=== PATIENT | male | born 1960 | race Caucasian/White ===

== ENCOUNTER 2020-03-13 18:35 | Observation (INO) ==
--- NOTE | 2020-03-13 20:52 | DR.SOBA ---
HPI Time Seen Time Seen by Provider: 03/13/20 19:16 Primary Care Physician Primary Care Physician: ZE HPI Comment HPI Comment: Persistent, mostly dry cough for the past two and a half weeks despite tx with zpak and Medrol dose pack last week for presumed covid since his daughter tested positive and lives with him; developed low grade fever to 100.6 a few days ago with l[place], st, body aches and pains, nausea and mild abd pain; stopped cigarettes many years ago and denies lung disease. Complaints Chief Complaint:: EXPOSURE TO COVID TWO WEEKS AGO, WEEK LATER STARTED HAVING SYMPTOMS. WENT TO DR WAS GIVEN MEDS BUT NO IMPROVEMENT. Self Treatment fo Chief Complaint: LOW GRADE FEVER Source History Provided: Patient Mode of Arrival Mode of Arrival: Ambulatory Timing Onset of Chief Complaint: 03/09/20 PMH PMH Past Medical History: Yes Past Medical History: Hypertension Past Surgical History: Yes Surgical History: Other Past Surgical History Comment: HERNIA SURGERY Family History History of Family Medical Conditions: Yes Family Medical History: Cancer and Hypertension Social History Alcohol Use: None Do you use any recreational Drugs:: No Lives With: Spouse and Family Lives Where: Home Infectious screening In the last 2 months have you had wt loss of >10#?: NO Have you had fever, night sweats or hemotysis?: No Have you traveled outside the country in the last 6 months?: No Isolation: Standard ROS Review of Systems Eyes: No Symptoms Reported ENTM: No Symptoms Reported Genitourinary: No Symptoms Reported Musculoskeletal: No Symptoms Reported Integumentary: No Symptoms Reported Hematologic/Lymphatic: No Symptoms Reported Endocrine: No Symptoms Reported PE Vital Signs Vitals: Temperature 98.2 F Pulse Rate 96 Respiratory Rate 20 Blood Pressure 152/88 O2 Sat by Pulse Oximetry 98 General Limitations: No Limitations General Appearance: Alert, In No Apparent Distress and Anxious Head Head Exam: Normal Inspection Eyes Eye exam: Normal Appearance ENT ENT Exam: Normal Exam Neck Neck Exam: Normal Inspection Chest Chest Inspection: Normal Inspection Respiratory Respiratory Exam: Bilateral: Decreased Breath Sounds Cardiovascular Cardiovascular Exam: Regular Rate and Normal Rhythm Abdominal Exam Abdominal Exam: Normal Inspection, Normal Bowel Sounds and Soft Extremities Extremities Exam: Normal Inspection Back Back Exam: Normal Inspection Neurologic Neurological Exam: Alert and Oriented X3 Skin Skin Exam: Warm, Dry, Intact and Normal Color COURSE Treatment Treatment: Dr Hendrix accepts pt Reevaluation 1st: Unchanged (resting comfortably) ROR Labs Reviewed Result Diagrams: 03/13/20 21:08 03/13/20 21:08 Laboratory: WBC 4.5 X10^3/uL (3.6-10.0) 03/13/20 21:08 RBC 5.27 X10^6/uL (4.7-6.0) 03/13/20 21:08 Hgb 15.9 g/dL (13.5-18.0) 03/13/20 21:08 Hct 46.0 % (42.0-54.0) 03/13/20 21:08 MCV 87.3 fL (80.0-100.0) 03/13/20 21:08 MCH 30.1 pg (27.0-34.0) 03/13/20 21:08 MCHC 34.5 g/dL (33.0-35.0) 03/13/20 21:08 RDW 14.2 % (11.6-16.5) 03/13/20 21:08 Plt Count 136 X10^3/uL (150.0-450.0) L 03/13/20 21:08 MPV 8.1 fL (7.4-11.0) 03/13/20 21:08 Neut % (Auto) 66.2 % (42.0-75.0) 03/13/20 21:08 Lymph % (Auto) 21.6 % (21.0-51.0) 03/13/20 21:08 [place] % (Auto) 10.1 % (0.0-13.0) 03/13/20 21:08 Eos % (Auto) 0.1 % (0.9-2.9) L 03/13/20 21:08 Baso % (Auto) 2.0 % (0.2-1.0) H 03/13/20 21:08 Neut # (Auto) 3.0 x10^3/uL (2.2-4.8) 03/13/20 21:08 Lymph # (Auto) 1.0 X10^3/uL (1.3-2.9) L 03/13/20 21:08 [place] # (Auto) 0.5 x10^3/uL (0.3-0.8) 03/13/20 21:08 Eos # (Auto) 0.0 x10^3/uL (0.0-0.2) 03/13/20 21:08 Baso # (Auto) 0.1 X10^3/uL (0.0-0.1) 03/13/20 21:08 Absolute Nucleated RBC 0.1 /100WBC 03/13/20 21:08 Sample Site Lrad 03/13/20 22:22 ABG pH 7.450 (7.35-7.45) 03/13/20 22:22 ABG pCO2 36.0 mmHg (35.0-45.0) 03/13/20 22:22 ABG pO2 64.0 mmHg (80.0-100.0) L 03/13/20 22:22 ABG HCO3 25.0 mmol/L (22-26) 03/13/20 22:22 ABG O2 Saturation 93.0 % (90-100) 03/13/20 22:22 ABG Base Excess 1.2 mmol/L (-2.0-2.0) 03/13/20 22:22 Ariel Test Pos 03/13/20 22:22 A-a Gradient 41.0 mmHg 03/13/20 22:22 FiO2 21.0 03/13/20 22:22 Blood Gas Comments Pt on roomair,delmy we 03/13/20 22:22 Sodium 138 mmol/L (136-145) 03/13/20 21:08 Corrected Sodium 139 mmol/L (136-145) 03/13/20 21:08 Potassium 4.6 mmol/L (3.5-5.1) 03/13/20 21:08 Chloride 102 mmol/L (98-107) 03/13/20 21:08 Carbon Dioxide 26.7 mmol/L (21-32) 03/13/20 21:08 BUN 18 mg/dL (7-18) 03/13/20 21:08 Creatinine 1.25 mg/dL (0.70-1.30) 03/13/20 21:08 Est GFR (MDRD) Af Amer > 60 (>60) 03/13/20 21:08 Est GFR (MDRD) Non-Af > 60 (>60) 03/13/20 21:08 Glucose 122 mg/dL (65-99) H 03/13/20 21:08 Calcium 9.8 mg/dL (8.5-10.1) 03/13/20 21:08 Corrected Calcium TNP 03/13/20 21:08 Total Bilirubin 0.50 mg/dL (0.2-1.0) 03/13/20 21:08 AST 33 Units/L (15-37) 03/13/20 21:08 ALT 45 Units/L (12-78) 03/13/20 21:08 Alkaline Phosphatase 57 Units/L (46-116) 03/13/20 21:08 C-Reactive Protein 15.80 mg/L (0-3.0) H 03/13/20 21:08 Total Protein 7.3 g/dL (6.4-8.2) 03/13/20 21:08 Albumin 3.6 g/dL (3.4-5.0) 03/13/20 21:08 Globulin 3.7 g/dL (2.5-4.5) 03/13/20 21:08 Albumin/Globulin Ratio 1.0 Ratio (1.1-2.1) L 03/13/20 21:08 SARS CoV-2 RNA Rapid ZARA Positive (NEGATIVE) A 03/13/20 21:09 XRAY XRAY Interpreted by: Radiologist X-ray Results: pcxr: 1. Bilateral interstitial prominence. Findings may represent atypical infection, including viral etiologies. Opioid Opioid Risk Tool Total: 0 Total Score Risk Category: Low Risk Copyright: Santos CANTU predicting aberrant behaviors Diagnosis Discharge Problem: Pneumonia due to 2019 novel coronavirus, Hypoxia, Nausea, Myalgia Instructions Forms: Patient Portal Social Distancing
[2020-03-13] MEDS ORDERED: ZOFRAN INJ 4 MG VIAL IM ONE (21:06)
[2020-03-13] MEDS ORDERED: ZOFRAN INJ 4 MG VIAL ONE (21:07)
--- NOTE | 2020-03-13 21:14 | RAD ---
CHEST, 1 VIEWHISTORY: EXPOSURE TO COVID TWO WEEKS AGO, WEEK LATER STARTED HAVING SYMPTOMS. WENT TO DR WAS GIVEN MEDS BUT NO IMPROVEMENT.Study: Single view of the chest.Comparison:NoneFindings:The cardiomediastinal silhouette is normal. Bilateral interstitial prominence. No focal consolidations, pleural effusions or pneumothorax. Osseous structures demonstrate no acute abnormality.IMPRESSION:1. Bilateral interstitial prominence. Findings may represent atypical infection, including viral etiologies.Electronically signed by: RADHA RODRÍGUEZ (Mar 13, 2020 21:12:44)
[2020-03-13 21:20] LABS: BASOPHILS # (AUTO) 0.1 X10^3/uL (0.0-0.1); EOSINOPHILS % (AUTO) 0.1 % (0.9-2.9); HEMOGLOBIN 15.9 g/dL (13.5-18.0); LYMPHOCYTES % (AUTO) 21.6 % (21.0-51.0); MEAN CORPUSCULAR HEMOGLOBIN 30.1 pg (27.0-34.0); MEAN CORPUSCULAR HGB CONC 34.5 g/dL (33.0-35.0); MEAN CORPUSCULAR VOLUME 87.3 fL (80.0-100.0); MEAN PLATELET VOLUME 8.1 fL (7.4-11.0); MONOCYTES # (AUTO) 0.5 x10^3/uL (0.3-0.8); MONOCYTES % (AUTO) 10.1 % (0.0-13.0); NEUTROPHILS % (AUTO) 66.2 % (42.0-75.0); PLATELET COUNT 136 X10^3/uL (150.0-450.0); RED BLOOD COUNT 5.27 X10^6/uL (4.7-6.0); RED CELL DISTRIBUTION WIDTH 14.2 % (11.6-16.5); WHITE BLOOD COUNT 4.5 X10^3/uL (3.6-10.0)
[2020-03-13 21:34] LABS: ALANINE AMINOTRANSFERASE 45 Units/L (12-78); ALBUMIN 3.6 g/dL (3.4-5.0); ALKALINE PHOSPHATASE 57 Units/L (46-116); ASPARTATE AMINO TRANSFERASE 33 Units/L (15-37); BLOOD UREA NITROGEN 18 mg/dL (7-18); CALCIUM 9.8 mg/dL (8.5-10.1); CARBON DIOXIDE 26.7 mmol/L (21-32); CHLORIDE 102 mmol/L (98-107); COR NA(FOR HYPERGLY) 139 mmol/L (136-145); CREATININE 1.25 mg/dL (0.70-1.30); SODIUM 138 mmol/L (136-145); TOTAL PROTEIN 7.3 g/dL (6.4-8.2); eGFR NON BLACK RACES > 60 (>60)
[2020-03-13] MEDS ORDERED: ROCEPHIN VIAL 1 GRAM 1 G in NS 100 ML IV + SPIKE MINIBAG* 100 ML IV ONE (21:36)
[2020-03-13] MEDS ORDERED: VIBRAMYCIN 100 MG in D5W 250 ML IV 250 ML IV STA (21:37)
[2020-03-13] MEDS ORDERED: ROCEPHIN VIAL 1 GRAM ONE (21:51)
[2020-03-13] MEDS ORDERED: NS 100 ML IV + SPIKE MINIBAG* 100 ML IV ONE (21:51)
[2020-03-13 22:24] LABS: ABG BASE EXCESS 1.2 mmol/L (-2.0-2.0)
[2020-03-13 22:25] LABS: ABG ALLEN TEST POS
[2020-03-13] MEDS ORDERED: ROCEPHIN 1 GRAM IV PREMIX 1 G/50 ML IV.SOLN. IV SCH (23:35)
[2020-03-14] MEDS: NS 1000 ML 1,000 ML IV SCH ×5 (02:00→23:54)
[2020-03-14 03:23] VITALS: BMI 36.7
[2020-03-14] MEDS ORDERED: DUONEB 0.5 MG/3 MG (3 mL) NEB ONE (04:54)
[2020-03-14] MEDS: DUONEB 0.5 MG/3 MG (3 mL) NEB SCH ×3 (06:00→21:05)
[2020-03-14 06:58] LABS: BASOPHILS % (AUTO) 0.1 % (0.2-1.0); EOSINOPHILS % (AUTO) 0.2 % (0.9-2.9); HEMATOCRIT 43.9 % (42.0-54.0); HEMOGLOBIN 14.8 g/dL (13.5-18.0); LYMPHOCYTES % (AUTO) 37.6 % (21.0-51.0); MEAN CORPUSCULAR HEMOGLOBIN 29.8 pg (27.0-34.0); MEAN CORPUSCULAR HGB CONC 33.8 g/dL (33.0-35.0); MEAN CORPUSCULAR VOLUME 88.3 fL (80.0-100.0); MONOCYTES # (AUTO) 0.5 x10^3/uL (0.3-0.8); MONOCYTES % (AUTO) 8.8 % (0.0-13.0); NEUTROPHILS # (AUTO) 2.8 x10^3/uL (2.2-4.8); NEUTROPHILS % (AUTO) 53.3 % (42.0-75.0); PLATELET COUNT 148 X10^3/uL (150.0-450.0); RED BLOOD COUNT 4.97 X10^6/uL (4.7-6.0); RED CELL DISTRIBUTION WIDTH 14.3 % (11.6-16.5); WHITE BLOOD COUNT 5.2 X10^3/uL (3.6-10.0)
[2020-03-14 07:08] LABS: ALANINE AMINOTRANSFERASE 45 Units/L (12-78); ALBUMIN 3.3 g/dL (3.4-5.0); ALKALINE PHOSPHATASE 51 Units/L (46-116); ASPARTATE AMINO TRANSFERASE 37 Units/L (15-37); BLOOD UREA NITROGEN 16 mg/dL (7-18); CALCIUM 8.3 mg/dL (8.5-10.1); CHLORIDE 103 mmol/L (98-107); COR CA(FOR HYPOALB) 8.9 mg/dL (8.5-10.1); COR NA(FOR HYPERGLY) 139 mmol/L (136-145); CREATININE 1.14 mg/dL (0.70-1.30); SODIUM 138 mmol/L (136-145); TOTAL PROTEIN 6.8 g/dL (6.4-8.2); eGFR NON BLACK RACES > 60 (>60)
[2020-03-14] MEDS: PULMICORT NEB TX 0.5 MG NEB SCH ×2 (10:00→21:05)
[2020-03-14] MEDS: VIBRAMYCIN 100 MG in D5W 250 ML IV 250 ML IV SCH ×2 (10:34→21:33)
[2020-03-14] MEDS: COZAAR PO SCH (10:34)
[2020-03-14] MEDS: ZOCOR TAB 20 MG PO SCH (10:34)
[2020-03-14] MEDS ORDERED: TUSSIONEX PENNKINETIC SUSP PO PRN (13:25)
--- NOTE | 2020-03-14 13:33 | DR.H&P ---
H&P - History & Physical for Day of: H&P Date: 03/13/20 - Chief Complaint Chief Complaint: FEVER, SOB, CCC COVID 19+ - History of Present Illness History of Present Illness: PT IS 59 WM ER ADMISSION WITH CO FAILED OUTPT THERAPY FOR COVID 19. PT REPORTS HE WAS POSITIVE ~10 DAYS AGO. PT COMPLETED STEROIDS AND ZITHROMAX BY MOUTH, ONSET OF FEVER X2 DAYS. PT HAS PMH OF HTN. PT HAD PNEUMONIA ON CXR. - Past Medical History Past Medical History: Hypertension - Past Surgical History Surgical History: Other - Family History Family Medical History: Cancer, Hypertension - Social History Alcohol Use: None Drug Use: None - Medications Home Medications: No Known Drug Allergies Allergy (Verified 03/13/20 19:04) CONTINUE taking the following medications losartan 50 mg PO DAILY 03/13/20 [History] simvastatin 20 mg PO DAILY 03/13/20 [History] - Review of Systems Constitutional: Fever, Chills, Sweats, Malaise Eyes: No Symptoms Reported ENT: No Symptoms Reported Respiratory: Cough, SOB with Excertion, Wheezing Cardiovascular: No Symptoms Reported Gastrointestinal: Nausea Genitourinary: No Symptoms Reported Musculoskeletal: No Symptoms Reported Skin: No Symptoms Reported Neurological: No Symptoms Reported - Physical Exam Vital Signs: Temperature 98.9 F Pulse Rate [Left Brachial] 89 Pulse Rate 81 Respiratory Rate 20 Blood Pressure [Left Arm] 135/77 Blood Pressure 152/88 O2 Sat by Pulse Oximetry 95 Oriented: Normal Eyes: Normal Ear: Normal Nose: Normal Throat: Normal Respiratory: RLL Diminished, LLL Diminished Cardiovascular: Normal : Normal Auscultation: Bowel Sounds: Normal Palpation: Normal Tenderness: Normal Skin: Decreased [place]urg[place] Musculoskeletal: Normal Psychiatric: Anxiety Affect: Anxious Speech Pattern: Clear, Appropriate - Assessment/Plan (1) Pneumonia due to 2019 novel coronavirus Status: Acute Plan: ADMIT, IV ATBX THERAPY. BP CONTROL, SUPPLEMENTAL O2, REMDESIVIR. CXR ON ADMISSION, LOVENOX PROPHALAXIS, VERIFY HOME MEDICATIONS. ABG ON ADMISSION, RESP THERAPY, ISOLATION PRECAUTIONS (2) Hypoxia Status: Acute (3) Hypertension Status: Acute - Allergies Allergies/Adverse Reactions: Allergies Allergy/AdvReac Type Severity Reaction Status Date / Time No Known Drug Allergies Allergy Verified 03/13/20 19:04
--- NOTE | 2020-03-14 13:38 | PCM.PROG ---
Progress Note - Progress Note for Day of Date of Exam: 03/14/20 - Subjective Subjective: PT IS 59 WM ER ADMISSION WITH COVID 19+PNEUMONIA WITH HYPOXIA, FAIILED OUTPT THERAPY. PT CURRENTLY ONIV DOXY, ADDED LEVAQUIN. PT ON 2L SUPPLEMENTAL O2 WITH STABLE O2 SAT AT 95 THIS AM. PT CO FATIGUE AND FEVER. ENCOURAGED PULMONARY TOILETING AND FREQUENT AMBULATION. - Past Medical Family Social History Past Med/Fam/Surg Hx: No changes since H&P Allergies: Allergies No Known Drug Allergies Allergy (Verified 03/13/20 19:04) - Review of Systems ROS: No change since H&P - Vital Signs and I&O's Vital Signs: Temperature 98.9 F Pulse Rate [Left Brachial] 89 Pulse Rate 81 Respiratory Rate 20 Blood Pressure [Left Arm] 135/77 Blood Pressure 152/88 O2 Sat by Pulse Oximetry 95 Intake and Output: Intake & Output 03/12/20 03/13/20 03/14/20 03/15/20 11:59 11:59 11:59 11:59 Intake Total 1145 / 1145 Balance 1145 / 1145 - Physical Exam Oriented: Normal Eyes: Normal Ear: Normal Nose: Normal Throat: Normal Respiratory: Diminished Cardiovascular: Normal : Normal Auscultation: Bowel Sounds: Normal Tenderness: Normal Skin: Decreased Turgur Musculoskeletal: Normal Psychiatric: Anxiety Affect: Anxious Speech Pattern: Clear, Appropriate - Laboratory and Diagnostics Result Diagrams: 03/14/20 05:51 03/14/20 05:51 Labs: Laboratory WBC 5.2 X10^3/uL (3.6-10.0) 03/14/20 05:51 RBC 4.97 X10^6/uL (4.7-6.0) 03/14/20 05:51 Hgb 14.8 g/dL (13.5-18.0) 03/14/20 05:51 Hct 43.9 % (42.0-54.0) 03/14/20 05:51 MCV 88.3 fL (80.0-100.0) 03/14/20 05:51 MCH 29.8 pg (27.0-34.0) 03/14/20 05:51 MCHC 33.8 g/dL (33.0-35.0) 03/14/20 05:51 RDW 14.3 % (11.6-16.5) 03/14/20 05:51 Plt Count 148 X10^3/uL (150.0-450.0) L 03/14/20 05:51 MPV 9.0 fL (7.4-11.0) 03/14/20 05:51 Neut % (Auto) 53.3 % (42.0-75.0) 03/14/20 05:51 Lymph % (Auto) 37.6 % (21.0-51.0) 03/14/20 05:51 [place] % (Auto) 8.8 % (0.0-13.0) 03/14/20 05:51 Eos % (Auto) 0.2 % (0.9-2.9) L 03/14/20 05:51 Baso % (Auto) 0.1 % (0.2-1.0) L 03/14/20 05:51 Neut # (Auto) 2.8 x10^3/uL (2.2-4.8) 03/14/20 05:51 Lymph # (Auto) 2.0 X10^3/uL (1.3-2.9) 03/14/20 05:51 [place] # (Auto) 0.5 x10^3/uL (0.3-0.8) 03/14/20 05:51 Eos # (Auto) 0.0 x10^3/uL (0.0-0.2) 03/14/20 05:51 Baso # (Auto) 0.0 X10^3/uL (0.0-0.1) 03/14/20 05:51 Absolute Nucleated RBC 0.0 /100WBC 03/14/20 05:51 Sample Site Lrad 03/13/20 22:22 ABG pH 7.450 (7.35-7.45) 03/13/20 22:22 ABG pCO2 36.0 mmHg (35.0-45.0) 03/13/20 22:22 ABG pO2 64.0 mmHg (80.0-100.0) L 03/13/20 22:22 ABG HCO3 25.0 mmol/L (22-26) 03/13/20 22:22 ABG O2 Saturation 93.0 % (90-100) 03/13/20 22:22 ABG Base Excess 1.2 mmol/L (-2.0-2.0) 03/13/20 22:22 Ariel Test Pos 03/13/20 22:22 A-a Gradient 41.0 mmHg 03/13/20 22:22 FiO2 21.0 03/13/20 22:22 Blood Gas Comments Pt on roomair,delmy we 03/13/20 22:22 Sodium 138 mmol/L (136-145) 03/14/20 05:51 Corrected Sodium 139 mmol/L (136-145) 03/14/20 05:51 Potassium 3.9 mmol/L (3.5-5.1) 03/14/20 05:51 Chloride 103 mmol/L (98-107) 03/14/20 05:51 Carbon Dioxide 23.0 mmol/L (21-32) 03/14/20 05:51 BUN 16 mg/dL (7-18) 03/14/20 05:51 Creatinine 1.14 mg/dL (0.70-1.30) 03/14/20 05:51 Est GFR (MDRD) Af Amer > 60 (>60) 03/14/20 05:51 Est GFR (MDRD) Non-Af > 60 (>60) 03/14/20 05:51 Glucose 121 mg/dL (65-99) H 03/14/20 05:51 Calcium 8.3 mg/dL (8.5-10.1) L 03/14/20 05:51 Corrected Calcium 8.9 mg/dL (8.5-10.1) 03/14/20 05:51 Ferritin 566 ng/mL (26-388) H 03/13/20 21:08 Total Bilirubin 0.40 mg/dL (0.2-1.0) 03/14/20 05:51 AST 37 Units/L (15-37) 03/14/20 05:51 ALT 45 Units/L (12-78) 03/14/20 05:51 Alkaline Phosphatase 51 Units/L (46-116) 03/14/20 05:51 C-Reactive Protein 15.80 mg/L (0-3.0) H 03/13/20 21:08 Total Protein 6.8 g/dL (6.4-8.2) 03/14/20 05:51 Albumin 3.3 g/dL (3.4-5.0) L 03/14/20 05:51 Globulin 3.5 g/dL (2.5-4.5) 03/14/20 05:51 Albumin/Globulin Ratio 0.9 Ratio (1.1-2.1) L 03/14/20 05:51 SARS CoV-2 RNA Rapid ZARA Positive (NEGATIVE) A 03/13/20 21:09 - Plan (1) Pneumonia due to 2019 novel coronavirus Status: Acute Plan: IV ATBX THERAPY. BP CONTROL, SUPPLEMENTAL O2, REMDESIVIR. CXR AM, LOVENOX PROPHALAXIS, VERIFY HOME MEDICATIONS. ABG AM, RESP THERAPY, ISOLATION PRECAUTIONS, SOLU MEDROL IV AND ADDED LEVAQUIN AND ROBITUSSIN. (2) Hypoxia Status: Acute (3) Hypertension Status: Acute
[2020-03-14] MEDS ORDERED: REMDESIVIR 200 MG in NS 250 ML IV 250 ML IV SCH (14:00)
[2020-03-14] MEDS: LEVAQUIN PREMIX IV 500 MG 500 MG/100 ML BAG IV SCH (14:46)
[2020-03-14] MEDS: LOVENOX INJ 40 MG SYR SC SCH (14:47)
[2020-03-14] MEDS: ROBITUSSIN DM PO SCH ×3 (14:48→21:27)
[2020-03-14] MEDS: SOLU-Medrol 125 MG VIAL IVP SCH ×2 (14:49→21:28)
[2020-03-14] MEDS ORDERED: TYLENOL 325 MG TAB PO PRN (14:53)
[2020-03-15 05:33] LABS: ABG ALLEN TEST POS; ABG BASE EXCESS -1.3 mmol/L (-2.0-2.0); ABG HCO3 22.7 mmol/L (22-26)
[2020-03-15] MEDS: DUONEB 0.5 MG/3 MG (3 mL) NEB SCH ×3 (05:35→21:30)
[2020-03-15] MEDS: SOLU-Medrol 125 MG VIAL IVP SCH ×3 (06:05→21:00)
--- NOTE | 2020-03-15 06:11 | RAD ---
HISTORYPneumonia hypoxiaSTUDYAP [id number] normal heart size with dilated aorta and no evidence for c onsolidation or pleural fluid. Persistent interstitial prominence especially in the right perihilar d istribution. No adenopathy seen.IMPRESSIONNo significant change. Persistent right perihilar process c onsistent with pneumonia.Electronically signed by: ONEYDA LOPEZ (Mar 15, 2020 06:09:43)
[2020-03-15 06:59] LABS: ALANINE AMINOTRANSFERASE 50 Units/L (12-78); ALBUMIN 3.2 g/dL (3.4-5.0); ALKALINE PHOSPHATASE 50 Units/L (46-116); ASPARTATE AMINO TRANSFERASE 31 Units/L (15-37); BLOOD UREA NITROGEN 14 mg/dL (7-18); CALCIUM 8.9 mg/dL (8.5-10.1); CARBON DIOXIDE 19.2 mmol/L (21-32); CHLORIDE 105 mmol/L (98-107); COR CA(FOR HYPOALB) 9.5 mg/dL (8.5-10.1); COR NA(FOR HYPERGLY) 140 mmol/L (136-145); SODIUM 139 mmol/L (136-145); TOTAL PROTEIN 6.9 g/dL (6.4-8.2); eGFR NON BLACK RACES > 60 (>60)
[2020-03-15 07:17] LABS: BASOPHILS % (AUTO) 0.6 % (0.2-1.0); HEMATOCRIT 43.5 % (42.0-54.0); HEMOGLOBIN 14.6 g/dL (13.5-18.0); LYMPHOCYTES # (AUTO) 0.6 X10^3/uL (1.3-2.9); LYMPHOCYTES % (AUTO) 25.8 % (21.0-51.0); MEAN CORPUSCULAR HEMOGLOBIN 29.6 pg (27.0-34.0); MEAN CORPUSCULAR HGB CONC 33.5 g/dL (33.0-35.0); MEAN CORPUSCULAR VOLUME 88.4 fL (80.0-100.0); MEAN PLATELET VOLUME 8.8 fL (7.4-11.0); MONOCYTES # (AUTO) 0.1 x10^3/uL (0.3-0.8); MONOCYTES % (AUTO) 4.5 % (0.0-13.0); NEUTROPHILS # (AUTO) 1.7 x10^3/uL (2.2-4.8); NEUTROPHILS % (AUTO) 69.1 % (42.0-75.0); PLATELET COUNT 142 X10^3/uL (150.0-450.0); RED BLOOD COUNT 4.92 X10^6/uL (4.7-6.0); RED CELL DISTRIBUTION WIDTH 14.6 % (11.6-16.5); WHITE BLOOD COUNT 2.5 X10^3/uL (3.6-10.0)
[2020-03-15] MEDS: NS 1000 ML 1,000 ML IV SCH ×3 (09:10→23:00)
[2020-03-15] MEDS: LEVAQUIN PREMIX IV 500 MG 500 MG/100 ML BAG IV SCH (09:10)
[2020-03-15] MEDS: REMDESIVIR 100 MG in NS 250 ML IV 250 ML IV SCH (09:10)
[2020-03-15] MEDS: COZAAR PO SCH (09:10)
[2020-03-15] MEDS: ROBITUSSIN DM PO SCH ×4 (09:12→21:00)
[2020-03-15] MEDS: LOVENOX INJ 40 MG SYR SC SCH (09:13)
[2020-03-15] MEDS: VIBRAMYCIN 100 MG in D5W 250 ML IV 250 ML IV SCH ×2 (09:13→21:00)
[2020-03-15] MEDS: ZOCOR TAB 20 MG PO SCH (09:15)
[2020-03-15] MEDS: PULMICORT NEB TX 0.5 MG NEB SCH ×2 (09:20→21:30)
[2020-03-16] MEDS: SOLU-Medrol 125 MG VIAL IVP SCH ×3 (05:15→21:51)
[2020-03-16] MEDS: DUONEB 0.5 MG/3 MG (3 mL) NEB SCH ×3 (05:45→21:00)
[2020-03-16 06:39] LABS: BASOPHILS % (AUTO) 0.1 % (0.2-1.0); HEMATOCRIT 40.4 % (42.0-54.0); HEMOGLOBIN 13.7 g/dL (13.5-18.0); LYMPHOCYTES # (AUTO) 0.9 X10^3/uL (1.3-2.9); LYMPHOCYTES % (AUTO) 8.8 % (21.0-51.0); MEAN CORPUSCULAR HEMOGLOBIN 29.9 pg (27.0-34.0); MEAN CORPUSCULAR VOLUME 87.8 fL (80.0-100.0); MEAN PLATELET VOLUME 8.7 fL (7.4-11.0); MONOCYTES # (AUTO) 0.3 x10^3/uL (0.3-0.8); MONOCYTES % (AUTO) 3.3 % (0.0-13.0); NEUTROPHILS # (AUTO) 8.7 x10^3/uL (2.2-4.8); NEUTROPHILS % (AUTO) 87.8 % (42.0-75.0); PLATELET COUNT 157 X10^3/uL (150.0-450.0); RED CELL DISTRIBUTION WIDTH 14.5 % (11.6-16.5); WHITE BLOOD COUNT 9.9 X10^3/uL (3.6-10.0)
[2020-03-16 06:56] LABS: ALANINE AMINOTRANSFERASE 42 Units/L (12-78); ALKALINE PHOSPHATASE 42 Units/L (46-116); ASPARTATE AMINO TRANSFERASE 22 Units/L (15-37); BLOOD UREA NITROGEN 18 mg/dL (7-18); CALCIUM 8.7 mg/dL (8.5-10.1); CARBON DIOXIDE 21.6 mmol/L (21-32); CHLORIDE 107 mmol/L (98-107); COR CA(FOR HYPOALB) 9.5 mg/dL (8.5-10.1); COR NA(FOR HYPERGLY) 140 mmol/L (136-145); CREATININE 1.04 mg/dL (0.70-1.30); SODIUM 139 mmol/L (136-145); TOTAL PROTEIN 6.3 g/dL (6.4-8.2); eGFR NON BLACK RACES > 60 (>60)
[2020-03-16] MEDS: NS 1000 ML 1,000 ML IV SCH ×3 (08:43→23:30)
[2020-03-16] MEDS: COZAAR PO SCH (08:44)
[2020-03-16] MEDS: LEVAQUIN PREMIX IV 500 MG 500 MG/100 ML BAG IV SCH (08:44)
[2020-03-16] MEDS: REMDESIVIR 100 MG in NS 250 ML IV 250 ML IV SCH (08:45)
[2020-03-16] MEDS: ROBITUSSIN DM PO SCH ×4 (08:47→20:18)
[2020-03-16] MEDS: VIBRAMYCIN 100 MG in D5W 250 ML IV 250 ML IV SCH ×2 (08:48→20:19)
[2020-03-16] MEDS: ZOCOR TAB 20 MG PO SCH (08:48)
[2020-03-16] MEDS: PULMICORT NEB TX 0.5 MG NEB SCH ×2 (09:25→21:00)
[2020-03-16] MEDS: LOVENOX INJ 40 MG SYR SC SCH (10:19)
[2020-03-16] MEDS ORDERED: LASIX IVP ONE (10:43)
[2020-03-16] MEDS ORDERED: K-DUR TAB 20 MEQ PO SCH (11:00)
--- NOTE | 2020-03-17 04:42 | RAD ---
HISTORYCOVID, PNEUMONIASTUDYCHEST, 1 [id number] trachea is midline. The cardiac silhouette is upper limits of normal. Suspect patchy bilateral hazy airspace opacities of the middle and lower lung zone. No pleural effusion or pneumothorax.. The bony thorax is stable.IMPRESSIONSuspect patchy bilateral hazy airspace opacities, concerning for multifocal pneumonia.Electronically signed by: Felecia Blas (Mar 17, 2020 04:41:16)
[2020-03-17 05:43] LABS: ABG BASE EXCESS 1.1 mmol/L (-2.0-2.0); ABG HCO3 25.1 mmol/L (22-26)
[2020-03-17 05:44] LABS: ABG ALLEN TEST POS
[2020-03-17] MEDS: SOLU-Medrol 125 MG VIAL IVP SCH ×2 (05:55→14:30)
[2020-03-17] MEDS: DUONEB 0.5 MG/3 MG (3 mL) NEB SCH ×2 (06:38→13:35)
[2020-03-17 06:43] LABS: ALANINE AMINOTRANSFERASE 51 Units/L (12-78); ALBUMIN 3.2 g/dL (3.4-5.0); ALKALINE PHOSPHATASE 43 Units/L (46-116); ASPARTATE AMINO TRANSFERASE 23 Units/L (15-37); BLOOD UREA NITROGEN 23 mg/dL (7-18); CALCIUM 8.9 mg/dL (8.5-10.1); CARBON DIOXIDE 22.4 mmol/L (21-32); CHLORIDE 107 mmol/L (98-107); COR CA(FOR HYPOALB) 9.5 mg/dL (8.5-10.1); COR NA(FOR HYPERGLY) 143 mmol/L (136-145); CREATININE 1.07 mg/dL (0.70-1.30); SODIUM 141 mmol/L (136-145); TOTAL PROTEIN 6.4 g/dL (6.4-8.2); eGFR NON BLACK RACES > 60 (>60)
[2020-03-17 06:58] LABS: BASOPHILS % (AUTO) 0.1 % (0.2-1.0); HEMATOCRIT 41.8 % (42.0-54.0); HEMOGLOBIN 14.1 g/dL (13.5-18.0); LYMPHOCYTES # (AUTO) 0.8 X10^3/uL (1.3-2.9); LYMPHOCYTES % (AUTO) 6.6 % (21.0-51.0); MEAN CORPUSCULAR HEMOGLOBIN 29.9 pg (27.0-34.0); MEAN CORPUSCULAR HGB CONC 33.7 g/dL (33.0-35.0); MEAN CORPUSCULAR VOLUME 88.8 fL (80.0-100.0); MONOCYTES # (AUTO) 0.5 x10^3/uL (0.3-0.8); MONOCYTES % (AUTO) 4.4 % (0.0-13.0); NEUTROPHILS # (AUTO) 10.8 x10^3/uL (2.2-4.8); NEUTROPHILS % (AUTO) 88.9 % (42.0-75.0); PLATELET COUNT 186 X10^3/uL (150.0-450.0); RED CELL DISTRIBUTION WIDTH 14.3 % (11.6-16.5); WHITE BLOOD COUNT 12.2 X10^3/uL (3.6-10.0)
[2020-03-17] MEDS: ROBITUSSIN DM PO SCH ×2 (09:19→14:30)
[2020-03-17] MEDS: LOVENOX INJ 40 MG SYR SC SCH (09:21)
[2020-03-17] MEDS: ZOCOR TAB 20 MG PO SCH (09:21)
[2020-03-17] MEDS: REMDESIVIR 100 MG in NS 250 ML IV 250 ML IV SCH (09:21)
[2020-03-17] MEDS: VIBRAMYCIN 100 MG in D5W 250 ML IV 250 ML IV SCH (09:21)
[2020-03-17] MEDS: COZAAR PO SCH (09:22)
[2020-03-17] MEDS: LEVAQUIN PREMIX IV 500 MG 500 MG/100 ML BAG IV SCH (09:22)
[2020-03-17] MEDS: PULMICORT NEB TX 0.5 MG NEB SCH (09:25)
[2020-03-17 12:46] VITALS: BP 134/77
== END 2020-03-17 16:48 | disposition home or self-care (01) ==
LOC: MED/SURG 18:57 → ER 18:57 → MED/SURG 03-14 01:32
PROVIDERS: ADMIT Internal Medicine; ATTEND Internal Medicine
DX: I10 Essential (primary) hypertension; R51.9 Headache, unspecified; R79.89 Other specified abnormal findings of blood chemistry; R09.02 Hypoxemia; J12.89 Other viral pneumonia; U07.1 COVID-19; R79.82 Elevated C-reactive protein (CRP); R73.09 Other abnormal glucose; R60.0 Localized edema